=== PATIENT | female | born 1950 | race Caucasian/White ===

== ENCOUNTER 2025-10-06 08:49 | Day surgery (SDC) | payer OTHER, SELFPAY ==
[2025-10-06] VITALS (10 sets, daily range): BP systolic 123–139; BP diastolic 70–84; BMI 34.3
[2025-10-06] MEDS: LOW STRENGTH ASPIRIN 81 MG PO (09:37)
[2025-10-06] MEDS: NSS 280 ML IV (09:37)
[2025-10-06 09:45] LABS: Glucose - Point of Care 102 mg/dl (70-99)
--- NOTE | 2025-10-06 10:55 | ITS.CL.CATH ---
[employer] - Catheterization
Cardiac Catheterization
Procedure Report:
LEFT HEART CATHETERIZATION
Date of Procedure: October 06, 2025
Procedures performed:
1: Coronary angiography
2: Left ventricular hemodynamic assessment
Primary Care Physician: Dr. Matilde Fowler
Primary Medical Records Specialist: Dr. Dioni Nazario
INDICATION: The patient is a 75-year-old woman with a past medical history of hypertension, diabetes, peripheral neuropathy, and hypothyroidism who presents with atypical chest pain. Nuclear perfusion study performed in outside facility on August
suggested a small to medium size perfusion defect in the apex. Echocardiography performed on September 29 was benign.
ACCESS: The patient was prepped and draped in usual sterile fashion. A 5 Arabic sheath was placed in the right radial artery using the Seldinger over the wire technique.
HEMODYNAMIC FINDINGS (mmHg):
LV(s/d,EDP): 133/11, 14
Ao(s/d,m): 133/81, 103
ANGIOGRAPHIC FINDINGS:
Single-plane Left Ventriculography in AGUSTIN Projection: Not done.
Coronary Angiography:
Dominance: Right
Left Main: Normal
Left Anterior Descending: The left anterior descending artery is a large-caliber vessel that gives rise to 1 major diagonal branch. The LAD wraps around the apex to feed a significant portion of the distal inferior wall. All vessels are widely
patent with no evidence of flow limiting disease and only very mild luminal irregularities with normal distal flow.
Left Circumflex: The left circumflex is a large-caliber vessel that gives rise to a huge bifurcating obtuse marginal branch. The distal vessels are tortuous but are otherwise angiographically normal without focal obstructive disease.
Right Coronary: The right coronary artery is a medium caliber dominant vessel that gives rise to a small caliber posterior descending artery and 3 large branching posterior left ventricular branches. These vessels appear angiographically normal
with normal flow.
Fluoroscopy Time (min): 2.4
Radiation Dose (mGy): 220
DAP (Gy.cm2): 20
Closure device: None. A TR band was applied for hemostasis at the right wrist.
Complications: None.
ASSESSMENT:
1: Near normal coronary arteries. No evidence of obstructive disease in the territory of the suggested perfusion abnormality. I suspect this was a false positive.
2: Normal left ventricular filling pressures.
CONCLUSIONS and RECOMMENDATIONS:
1: Continue medical therapy and clinical follow-up as scheduled.
Pearl Fernandez M.D.
== END 2025-10-06 14:00 | disposition home or self-care (01) ==
LOC: CATH 08:49
PROVIDERS: ATTENDING PHYSICIAN Internal Medicine Cardiovascular Disease; FAMILY PHYSICIAN Family Medicine
DX: R07.89 Other chest pain (principal); E03.9 Hypothyroidism, unspecified; E11.42 Type 2 diabetes mellitus with diabetic polyneuropathy; I10 Essential (primary) hypertension; Z79.85 Long-term (current) use of injectable non-insulin antidiabetic drugs; Z79.82 Long term (current) use of aspirin; Z79.890 Hormone replacement therapy
CPT/HCPCS: 82962; 93458; C1769; C1894; Q9967